=== PATIENT | female | born 1945 | race Asian ===

== ENCOUNTER → 2019-03-10 | Outpatient (CLI) | payer MEDICARE, OTHER | END | disposition home or self-care (01) | LOC: RADPV 09:51 | PROVIDERS: ATTEND Physical Medicine & Rehabilitation Spinal Cord Injury Medicine | DX: M16.11 Unilateral primary osteoarthritis, right hip (principal); M47.816 Spondylosis without myelopathy or radiculopathy, lumbar region; M43.16 Spondylolisthesis, lumbar region; M47.812 Spondylosis without myelopathy or radiculopathy, cervical region | CPT/HCPCS: 72040; 72100; 73503 ==